=== PATIENT | male | born 1980 | race Two or more races ===

== ENCOUNTER 2017-01-30 14:30 | Emergency (ER) | payer OTHER ==
[2017-01-30] MEDS ORDERED: OXYCODONE/APAP 5/325MG COMBO TABLET PO ONE ×2 (14:50→18:42)
[2017-01-30] MEDS ORDERED: IBUPROFEN 600 MG TABLET (FP) PO ONE (14:50)
[2017-01-30] MEDS ORDERED: METHOCARBAMOL 500 MG TABLET PO ONE (14:50)
--- NOTE | 2017-01-30 14:50 | PDOC ---
[id number] is a 36 year old male, with no significant past medical history, who presents to the emergency department with 2 months of left-sided low back pain. 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 He denies taking pain medication today. He states he can not lay in a comfortable position. He denies chest pain, shortness of breath, headache and dizziness. He denies fever, chills, nausea, vomit, diarrhea and constipation. He denies dysuria, frequency, urgency and hematuria. Allergies: NKDA Social history: tobacco (2 cigars on the weekend), social alcohol consumption <Adrianne Mcknight - Last Filed: 01/30/17 18:19> <Shahana Hearn - Last Filed: 02/06/17 10:06> - General Chief Complaint: Injury Stated Complaint: JOB INJURY BACK PAIN Time Seen by Provider: 01/30/17 14:39 Past History <Adrianne Mcknight - Last Filed: 01/30/17 18:19> <Shahana Hearn - Last Filed: 02/06/17 10:06> - Past Medical History Allergies/Adverse Reactions: Allergies Allergy/AdvReac Type Severity Reaction Status Date / Time No Known Allergies Allergy Verified 01/30/17 14:59 Home Medications: Ambulatory Orders Methocarbamol [Robaxin -] 500 mg PO BID #14 tablet 01/30/17 Oxycodone HCl/Acetaminophen [Percocet 5-325 mg Tablet] 1 - 2 tab PO Q6H PRN #20 tab MDD 8 tabs 01/30/17 Review of Systems - Review of Systems Able to Perform ROS?: Yes Comments:: 01/30/17 14:51 GENERAL/CONSTITUTIONAL: No fever or chills. No weakness. HEAD, EYES, EARS, NOSE AND THROAT: No change in vision. No ear pain or discharge. No sore throat. CARDIOVASCULAR: No chest pain or shortness of breath. RESPIRATORY: No cough, wheezing, or hemoptysis. GASTROINTESTINAL: No nausea, vomiting, diarrhea or constipation. GENITOURINARY: No dysuria, frequency, or change in urination. MUSCULOSKELETAL: (+) left sided lumbar pain. No joint pain or swelling. No muscle swelling. No neck pain. SKIN: No rash NEUROLOGIC: No headache, vertigo, loss of consciousness, or change in strength/ sensation. ENDOCRINE: No increased thirst. No abnormal weight change. HEMATOLOGIC/LYMPHATIC: No anemia, easy bleeding, or history of blood clots. ALLERGIC/IMMUNOLOGIC: No hives or skin allergy. <Adrianne Mcknight - Last Filed: 01/30/17 18:19> *Physical Exam - Physical Exam Comments: 01/30/17 14:52 GENERAL: Awake, alert, and fully oriented, in no acute distress HEAD: No signs of trauma EYES: PERRLA, EOMI, sclera anicteric, conjunctiva clear ENT: Auricles normal inspection, hearing grossly normal, nares patent, oropharynx clear without exudates. Moist mucosa NECK: Normal ROM, supple, no lymphadenopathy, JVD, or masses LUNGS: Breath sounds equal, clear to auscultation bilaterally. No wheezes, and no crackles HEART: Regular rate and rhythm, normal S1 and S2, no murmurs, rubs or gallops ABDOMEN: Soft, nontender, normoactive bowel sounds. No guarding, no rebound. No masses EXTREMITIES: Normal range of motion, no edema. No clubbing or cyanosis. No cords, erythema, or tenderness MUSCULOSKELETAL: (+) left paraspinal lumbar muscle tenderness to palpation. Patient is laying on his abdomen in an awkward position in attempt to relieve pain. NEUROLOGICAL: Cranial nerves II through XII grossly intact. Normal speech, normal gait SKIN: Warm, Dry, normal turgor, no rashes or lesions noted. <Adrianne Mcknight - Last Filed: 01/30/17 18:19> ED Treatment Course - RADIOLOGY Radiograph Interpretation: 01/30/17 18:19 Lumbar-Sacral xray was read by Dr. Carrillo at 18:18 Impression: questionable minimal anterior wedging of T12 vertebral body that is likely old. <Adrianne Mcknight - Last Filed: 01/30/17 18:19> Medical Decision Making - Medical Decision Making Pt with low back pain that is acute on chronic. Likely repetitive injury related to heavy lifting. No prior history of imaging, so films were obtained. Initially, patient was unable to move or stand, lying in a face-down position in the bed. Subsequently, after medication, he was able to move and stand. We discussed plan going forward- if pain continues, he may need further workup, including MRI, which cannot be done in the ED, as it is not emergent. Will need to f/u with edi specialist. <Shahana Hearn - Last Filed: 02/06/17 10:06> *DC/Admit/Observation/Transfer - Attestations Scribe Attestion: 01/30/17 14:56 Documentation prepared by Adrianne Mcknight, acting as medical imaging technician for Shahana Hearn MD, MD <Adrianne Mcknight - Last Filed: 01/30/17 18:19> - Discharge Dispostion Admit: No <Shahana Hearn - Last Filed: 02/06/17 10:06> Diagnosis at time of Disposition: Low back pain Qualifiers: Chronicity: acute Back pain laterality: left Sciatica presence: without sciatica Qualified Code(s): M54.5 - Low back pain - Discharge Dispostion Disposition: HOME Condition at time of disposition: Improved - Prescriptions Prescriptions: Oxycodone HCl/Acetaminophen [Percocet 5-325 mg Tablet] 1 - 2 tab PO Q6H PRN #20 tab MDD 8 tabs PRN Reason: Severe Pain Methocarbamol [Robaxin -] 500 mg PO BID #14 tablet - Referrals Referrals: Mitul Fitzgerald MD [Staff Physician] - - Patient Instructions Printed Discharge Instructions: DI for Low Back Pain
[2017-01-30 14:59] VITALS: BMI 26.6
[2017-01-30] MEDS ORDERED: OXYCODONE/APAP 5/325MG COMBO TABLET ONE (18:43)
[2017-01-30 18:49] VITALS: BP 120/75; PULSE 65; TEMP 97.9
== END 2017-01-30 18:56 | disposition home or self-care (01) ==
LOC: JER 14:30
DX: M54.5 Low back pain (principal); X50.0XXA Overexertion from strenuous movement or load, initial encounter; X50.9XXA Other and unspecified overexertion or strenuous movements or postures, initial encounter; Y93.H3 Activity, building and construction; Y92.69 Other specified industrial and construction area as the place of occurrence of the external cause; Y99.0 Civilian activity done for income or pay
CPT/HCPCS: 72100-TC; 99283-25